=== PATIENT | male | born 1995 | race Caucasian/White ===

== ENCOUNTER 2022-01-01 20:39 | Emergency (ER) | payer SELFPAY ==
[2022-01-01 21:01] VITALS: BP 149/89; PULSE 88; RESP 16; TEMP 36.7; O2SAT 98; BMI 43.8
--- NOTE | 2022-01-01 21:09 | PC.NURSE ---
[facility] AT BEDSIDE.
--- NOTE | 2022-01-01 21:53 | HMH.EDGENADL ---
ED Disposition Clinical Impression: Conjunctivitis, Chemosis of conjunctiva Disposition: Home, Self-Care Condition on Discharge: Good Instructions: DI for Chemical Eye Burn Additional Instructions: At this time it was felt that you are safe to be discharged home. Please apply 2 drops of your antibiotic solution to the affected eye 4-5 times a day. If your symptoms are not subsiding by the morning please call [facility] at [phone] to schedule an evaluation. Referrals: Provider,Referral, [Primary Care Provider] - - Critical Care Critical Care Time: No Attestation: On 01/01/22, the high probability of a clinically significant, sudden or life threatening deterioration of the following system(s) required my full and direct attention, intervention and personal management. The time I documented below is in addition to time spent performing reported procedures but includes the following listed in this critical care notation. Medical Decision Making - Giovany Inquiry Pt receiving controlled substance: No Vital Signs: 01/01/22 21:01 01/01/22 23:01 Temperature 98.1 F 98.3 F Temperature Source Oral Oral Pulse Rate 88 Pulse Rate [Left Radial] 88 Respiratory Rate 16 16 Blood Pressure 144/68 H Blood Pressure [Right Arm] 149/89 H Blood Pressure Mean [Right Arm] 109 Blood Pressure Source [Right Arm] Automatic Cuff Blood Pressure Position Sitting Blood Pressure Position [Right Arm] Sitting 02 Sat by Pulse Oximetry 98 Oxygen Delivery Method Room Air Room Air Orders (Tests/Meds): ED MEDICATIONS Discontinued Medications Generic Name Dose Route Start Last Admin Trade Name Freq PRN Reason Stop Dose Admin Neomycin/Polymyxin/Gramicidin 0 ml 01/01/22 23:00 01/01/22 22:54 Ivhmxfju-Xvnyrn-Nkzk Ophth Soln 10ml Bottle OP 01/31/22 22:59 2 drp 5XDAY JENNIFER Administration Medical Decision Narrative: In summary this is a 26-year-old male who presents emergency department after getting rodenticide in his right eye. Patient is hemodynamically stable upon arrival. Visual acuity is 20/25 in the right and 20/20 in the left eye. Exam findings are described above. pH is within normal limits. Fluorescein stain shows diffuse punctate uptake concerning for chemical injury. The case was discussed with ophthalmology and given that there is normal pH patient is appropriate for discharge with antibiotic drops and if symptoms are progressive he was instructed to call the clinic in the morning. Patient will be discharged with polymyxin eyedrops. General Adult HPI - General Chief complaint: Eye Problems Stated complaint: Right eye Red swollen Time Seen by Provider: 01/01/22 21:20 Mode of Arrival: Ambulatory Limitations: No Limitations Description of Symptoms (Recalled from ER Triage Doc. by RN): PT REPORTS IRRITATION TO RIGHT EYE AFTER HE PUT OUT RAT POISON. PT REPORTS HE IS NOT SURE IF HE GOT ANYTHING IN IT OR NOT. PT REPORTS HE FLUSHED EYE AND TOOK SHOWER PRIOR TO ARRIVAL. - History of Present Illness HPI narrative: Patient is a 26-year-old male who presents emergency department after getting Decon rodent killer in his right eye. He noticed irritation and swelling and presents here for further evaluation. He sees some floaters however has no visual acuity complaints. Pain is moderate in intensity and itchy. He irrigated his own eye at home prior to arrival. - Related Data Home Medications Medication Instructions Recorded Confirmed No Known Home Medications 01/01/22 01/01/22 Allergies Allergy/AdvReac Type Severity Reaction Status Date / Time No Known Allergies Allergy Verified 01/01/22 22:53 [facility] History - Hepatitis A Screen Attestation statement:: This patient has been screened for Hepatitis A risk factors. ROS Obtained: Yes All systems reviewed & no additional complaints Physical Exam - General General appearance: alert, in no apparent distress - Head
--- NOTE | 2022-01-01 22:37 | PC.NURSE ---
MD EXAM WITH [facility]. OPTHAMOLOGY PAGED FOR CONSULT FOR .
--- NOTE | 2022-01-01 22:37 | PC.NURSE ---
PT UPDATED WITH EXPECTED WAIT TIMES.
--- NOTE | 2022-01-01 22:51 | PC.NURSE ---
PT UPDATED WITH EXPECTED WAIT TIMES. NO COMPLAINTS VOICED. NO ACUTE DISTRESS NOTED.
[2022-01-01 23:01] VITALS: BP 144/68; PULSE 88; RESP 16; TEMP 36.8; O2SAT 97
== END 2022-01-01 23:03 | disposition home or self-care (01) ==
PROVIDERS: Emergency Provider Emergency Medicine
DX: H11.421 Conjunctival edema, right eye (principal)
CPT/HCPCS: 99283

== ENCOUNTER 2022-06-19 18:13 | Emergency (ER) | payer BC, SELFPAY ==
[2022-06-19 18:40] VITALS: BP 176/80; PULSE 80; RESP 18; TEMP 36.7; O2SAT 98; BMI 45.0
[2022-06-19 18:52] VITALS: BP 155/87; PULSE 77; RESP 15; TEMP 36.7; O2SAT 99; BMI 31.5
--- NOTE | 2022-06-19 18:59 | EXP.UTC ---
Discharge Plan Disposition Patient Disposition: Home, Self-Care Condition: Good Prescriptions Prescriptions: New ibuprofen [IBU] 800 mg tablet 800 mg PO TIDP PRN (Reason: Moderate Pain) Qty: 20 0RF amoxicillin-pot clavulanate 875-125 mg Tablet 1 tab PO Q12H Qty: 20 0RF Referrals Follow up/Referrals: Provider,Referral, [Primary Care Provider] - See instructions Activity Restrictions/Add. Instructions Additional Instructions/Restrictions: Take medication as prescribed Follow up with Dentist as soon as possible Use Dental balls as advised in the [facility] today Straight to ER if any life threatening symptoms Clinical Impressions Clinical Impression: Abscess, dental Instructions Patient Instructions: DI for Tooth Abscess, Tooth Abscess, Amoxicillin and Clavulanic Acid Discharge ED Provider: Diane Rai [facility] HPI General Stated complaint: ABCESS IN MOUTH Mode of Arrival: Ambulatory Limitations: No Limitations Time Seen by Provider: 06/19/22 18:59 Description of Symptoms (Recalled from Triage Doc. by RN): pt comes in with c/o poss abcess in mouth. pt is waiting to be seen by dentist, pt just got medical insurance back. History of Present Illness Provider Complaint: Patient states that he has a couple teeth on right lower bottom that is broken off at the gumline States that he broke them about a year ago and has been waiting to get dental insurance to see the dentist States that last night he started having pain and swelling in his gum line and thinks they are getting infected so he came in to get something to help with the infection and pain Related Data Previous Rx's Medication Instructions Recorded amoxicillin 875 mg-potassium 1 tab PO Q12H #20 tabs 06/19/22 clavulanate 125 mg tablet ibuprofen 800 mg tablet (IBU) 800 mg PO TIDP PRN Moderate Pain 06/19/22 #20 tabs Allergies Allergy/AdvReac Type Severity Reaction Status Date / Time No Known Allergies Allergy Verified 01/01/22 22:53 Worker's Comp Is this a Worker's Comp case?: No [facility] Disclaimer: The information contained in this section may have been updated after the patient was seen, as this information can be updated by other users. Social History Smoking Status: Unknown if ever smoked alcohol intake: never current occupational status: employed Travel in the last 8 weeks: None ROS Obtained: Yes All systems reviewed & no additional complaints except as documented and Yes Systems reviewed as appropriate & no additional complaints except as documented Constitutional Constitutional: Reports system reviewed and no additional complaints, except as documented and Reports as per HPI ENT Ears, Nose, Mouth, and Throat: Reports system reviewed and no additional complaints, except as documented, Reports as per HPI and Reports dental pain Cardiovascular Cardiovascular: Reports system reviewed and no additional complaints, except as documented and Reports as per HPI Respiratory Respiratory: Reports system reviewed and no additional complaints, except as documented and Reports as per HPI Gastrointestinal Gastrointestingal: Reports system reviewed and no additional complaints, except as documented and as per HPI Physical Exam General General appearance: alert and in no apparent distress Expanded ENT Exam Teeth exam: Present dental caries, fractured tooth #, gingival swelling and other (multiple teeth on right lower bottom broken off at gum line with swelling and redness noted in gums) Respiratory Respiratory exam: Present normal lung sounds bilaterally; Absent respiratory distress or wheezes Cardiovascular Cardiovascular exam: Present regular rate, normal rhythm and normal heart sounds Neurological Exam Neurological exam: Present alert, oriented X3 and normal gait Medical Decision Making Giovany Inquiry Pt receiving controlled substance: No Giovany was queried for this patient: No Vital Signs: 06/19/22 18:52 06/19/22 18:4
[2022-06-19 19:06] VITALS: BP 176/80; PULSE 80; RESP 18; TEMP 36.7; O2SAT 98
== END 2022-06-19 19:40 | disposition home or self-care (01) ==
PROVIDERS: Emergency Provider Nurse Practitioner
DX: K04.7 Periapical abscess without sinus (principal)
CPT/HCPCS: 99212; G0463

== ENCOUNTER 2024-01-17 08:17 | Emergency (ER) | payer BC, SELFPAY ==
[2024-01-17] VITALS (9 sets, daily range): BP systolic 126–147; BP diastolic 67–98; PULSE 63–80; RESP 16–21; TEMP 36.6–37; O2SAT 95–98; BMI 46.4; BMI 46.2
--- NOTE | 2024-01-17 08:55 | EXP.UTC ---
Discharge Plan Disposition Patient Disposition: Still a Patient Condition: Fair Prescriptions Prescriptions: No Action No Known Home Medications Referrals Follow up/Referrals: Provider,Referral, [Primary Care Provider] - See instructions Clinical Impressions Clinical Impression: Chest pain Print Language Print Language: Bulgarian Discharge ED Provider: Angel Curry [facility] HPI General Stated complaint: fast heart rate, chest discomfort Mode of Arrival: Ambulatory Source of Information: Patient Limitations: No Limitations Time Seen by Provider: 01/17/24 08:55 Description of Symptoms (Recalled from Triage Doc. by RN): PATIENT STATES THAT ON 01/13 HE WAS WORKING OUTSIDE IN THE HEAT WHEN HE HAD AN EPISODE OF CHEST DISCOMFORT, FAST HEART BEAT, PAIN TO LEFT ARM AND NUMBNESS IN LEFT FINGERS. HE REPORTS HAVING THE SAME EPISODE YESTERDAY WHILE HAVING SEX WITH HIS . PATIENT CURRENTLY DENIES ANY CHEST PAIN/DISCOMFORT OR OTHER SYMPTOMS AT THIS TIME. HEENT Symptoms (Recalled from RN notes): No Resp Symptoms (Recalled from RN notes): No Skin Symptoms (Recalled from RN notes): No MS Symptoms (Recalled from RN notes): No Functional Status (Recalled from RN notes): WNL History of Present Illness Provider Complaint: He states that he had an episode of chest pain and high heart rate last night. He had a similar episode that occurred 2 days ago. He denies any chest pain or symptoms at this time. Related Data Home Medications ?Medication ?Instructions ?Recorded ?Confirmed No Known Home Medications 01/17/24 01/17/24 Allergies Allergy/AdvReac Type Severity Reaction Status Date / Time No Known Allergies Allergy Verified 01/01/22 22:53 Worker's Comp Is this a Worker's Comp case?: No [facility] Disclaimer: The information contained in this section may have been updated after the patient was seen, as this information can be updated by other users. Medical History (Updated 01/17/24 @ 09:05 by Angel Curry APRN) Hypertension Social History (Updated 06/19/22 @ 19:06 by Diane Rai APRN) Smoking Status: Unknown if ever smoked alcohol intake: never current occupational status: employed Travel in the last 8 weeks: None ROS Obtained: Yes All systems reviewed & no additional complaints except as documented Constitutional Constitutional: Denies chills and Denies fever(s) Eyes Eyes: Denies eye discharge ENT Ears, Nose, Mouth, and Throat: Denies dizziness, Denies otalgia and Denies sore throat Cardiovascular Cardiovascular: Reports as per HPI and Reports chest pain Respiratory Respiratory: Denies shortness of breath, Denies chest congestion, Denies cough, Denies stridor and Denies wheezing Gastrointestinal Gastrointestingal: Denies nausea or vomiting Musculoskeletal Musculoskeletal: Reports system reviewed and no additional complaints, except as documented and Denies arthralgias Integumentary/Breasts Skin/Breast: Denies rash Neurologic Neurologic: Denies dizziness and Denies paresthesias Allergic/Immunologic Allergic/Immunologic: Denies wheezing Physical Exam General General appearance: alert and in no apparent distress Head Head exam: atraumatic, normocephalic and normal inspection Eye Eye exam: Present normal appearance, PERRL and EOMI ENT ENT exam: Present normal exam, normal oropharynx, mucous membranes moist, TM's normal bilaterally and normal external ear exam Neck Neck exam: Present normal inspection, full ROM and trachea midline; Absent meningismus or lymphadenopathy Chest Chest inspection: Present normal inspection and symmetric chest wall rise; Absent tenderness Respiratory Respiratory exam: Present normal lung sounds bilaterally; Absent respiratory distress Cardiovascular Cardiovascular exam: Present regular rate and normal rhythm; Absent JVD Abdominal Exam Abdominal exam: Present soft and normal bowel sounds; Absent distention, tenderness or guarding Extremities Exam Extremities exam: Present normal inspection, full ROM and normal capillary refill; Absent calf tenderness Back Exam Back exam: Present normal inspection; Absent tenderness Neurological Exam Neurological exam: Present alert and oriented X3 Psychiatric Psychiatric exam: Present normal affect and normal mood Skin Skin exam: Present warm, dry, intact and normal color Lymphatic Lymphatic Findings: no adenopathy Medical Decision Making Medical Records Medical records reviewed: No I reviewed the patient's medical records. Giovany Inquiry Pt receiving controlled substance: No Vital Signs: 01/17/24 08:30 Temperature 98.6 F Temperature Source Oral Pulse Rate [Left Brachial] 80 Respiratory Rate 21 Blood Pressure [Left Arm] 138/98 H Blood Pressure Mean [Left Arm] 111 Blood Pressure Source [Left Arm] Automatic Cuff Blood Pressure Position [Left Arm] Sitting 02 Sat by Pulse Oximetry 98 Oxygen Delivery Method Room Air Medical Decision Narrative: he was transferred to the er due to his chest pain complaints.
--- NOTE | 2024-01-17 09:00 | PC.NURSE ---
PATIENT SENT TO ER PER Seun TRUONG APRN FOR FURTHER EVALUATION. REPORT GIVEN TO Sharon SIBLEY RN. PATIENT TRANSPORTED TO ER VIA WHEELCHAIR WITH [facility] STAFF ASSIST
--- NOTE | 2024-01-17 09:07 | ECG_ITS ---
APPROVED REPORT Exam: Resting ECG HR:72 bpm ECG Measurements Heart Rate 72 AXES IN 185 P 54 QRSd 109 QRS 34 QT 395 T 34 QTc 420 Conclusion SINUS RHYTHM NORMAL ECG Electronically signed by : JENISE DANG, 01/17/2024 23:29:26
--- NOTE | 2024-01-17 09:14 | XR_ITS ---
PROCEDURE INFORMATION: Exam: XR Chest Exam date and time: 01/17/2024 9:26 AM Age: 29 years old Clinical indication: Other: Chest pain TECHNIQUE: Imaging protocol: Radiologic exam of the chest. Views: 2 views. COMPARISON: No relevant prior studies available. FINDINGS: Lungs: Unremarkable. No consolidation. Pleural spaces: Unremarkable. No pleural effusion. No pneumothorax. Heart/Mediastinum: Unremarkable. No cardiomegaly. Bones/joints: Unremarkable. IMPRESSION: No acute findings.
[2024-01-17 09:17] LABS: MANUAL DIFFERENTIAL MANUAL DIFFERENTIAL (MANUAL DIFF)
[2024-01-17 09:21] LABS: Basophils # 0.1 K/mm3 (0-0.2); Basophils % 1.1 % (0.1-2.0); Eosinophils # 0.2 K/mm3 (0.0-0.4); Eosinophils % 3.2 % (0.1-12.0); Hematocrit 47.7 % (42.0-52.0); Hemoglobin 15.7 g/dL (14.1-18.0); Lymphocytes # 2.2 K/mm3 (0.7-4.5); Lymphocytes % 28.6 % (10-50); Mean Corpuscular Volume 84.9 fl (80-94); Mean Platelet Volume 7.5 fl (7.4-10.4); Monocytes # 0.3 K/mm3 (0.1-1.0); Monocytes % 4.5 % (1.7-9.3); Neutrophils # 4.7 K/mm3 (1.8-7.8); Neutrophils % 62.7 % (37.0-80.0); Platelet Count 265 K/mm3 (142-424); Red Blood Count 5.62 M/mm3 (4.60-6.20); Red Cell Distribution Width 13.8 % (11.5-17.5); White Blood Count 7.5 K/mm3 (4.8-10.8)
[2024-01-17 09:22] LABS: Albumin Level 4.5 g/dl (3.5-5.0); Chloride 107 mmol/L (98-107)
[2024-01-17 09:23] LABS: Potassium 3.9 mmoL/L (3.5-5.1); Sodium 141 mmol/L (136-145)
[2024-01-17 09:25] LABS: Blood Urea Nitrogen 15 mg/dl (9-20); Creatinine Clearance Estimated 143 mL/min (50-200); Estimated Glomerular Filt Rate 88 ml/min (>60); GFR (African American) 106 ML/MIN (>60)
--- NOTE | 2024-01-17 09:25 | PC.NURSE ---
DR VARELA AT BEDSIDE
[2024-01-17 09:26] LABS: Alanine Aminotransferase 50 U/L (12-78); Albumin/Globulin Ratio 1.3 (1.1-1.8); Alkaline Phosphatase 87 U/L (38-126); Anion Gap 9.9 mEq/L (5-15); Aspartate Amino Transferase 38 U/L (17-59); Bilirubin,Total 0.7 mg/dl (0.2-1.3); Calcium 8.7 mg/dl (8.4-10.2); Carbon Dioxide 28 mmol/L (22.0-30.0); Globulin 3.5 g/dL (1.3-3.2); Glucose 95 mg/dl (74-100)
[2024-01-17 09:39] LABS: Troponin I < 0.01 ng/ml (0.00-0.034)
[2024-01-17 10:40] LABS: Eosinophils % 3 % (0-3); Lymphocytes % 32 % (10-50); Monocytes % 2 % (2-9); Neutrophils % 60 % (42-76); Total Cells Counted 100
[2024-01-17 10:41] LABS: Platelet Estimate Normal; RBC Morphology Normal
[2024-01-17 11:50] LABS: Troponin I < 0.01 ng/ml (0.00-0.034)
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
== END 2024-01-17 12:19 | disposition home or self-care (01) ==
LOC: UTC 08:46 → ER 09:01
PROVIDERS: Emergency Provider Emergency Medicine
DX: R07.9 Chest pain, unspecified (principal); E66.01 Morbid (severe) obesity due to excess calories; Z68.42 Body mass index [BMI] 45.0-49.9, adult
CPT/HCPCS: 71046; 80053; 84484; 85007; 85014; 85018; 85048; 85049; 93005; 99284

== ENCOUNTER 2024-02-23 07:43 | Outpatient (CLI) | payer BC, SELFPAY ==
--- NOTE | 2024-02-23 07:45 | CA_ITS ---
APPROVED REPORT EXAM: Comprehensive 2D, Doppler, and color-flow Echocardiogram Sales Management Trainee: Sri Quiros RT(R) Ht: 6 ft 7 in Wt: 422lbs BSA: 3.13 BP: 128/82 mmHg Indications: CP, palpitations, fatigue, HTN, SOB, abn EKG, TDE due body habitus Echo Enhancing Agent Indication: Endocardial border delineation Agent(s) / Amount(s) Used: Definity 2 cc M-Mode Dimensions RVDd 2.81 cm (0.9-2.6) LA Diam 3.99 cm (1.9-4.0) LVDd 5.22 cm (3.5-5.7) LVDs 4.15 cm (3.5-5.7) IVSd 1.07 cm (0.6-1.1) PWd 1.07 cm (0.6-1.1) EF (Teich) 41.50% FS 20.50% EDV (Teich) 130.70 mL ESV (Teich) 76.40 mL LV Diastology E Decel Time 170 (160-240 msec) E/A Ratio 1.9 Mitral Valve MV E Max Vic. 97.0 (40-130 cm/s) MV A Velocity 51.0 (40-130 cm/s) E/A Ratio 1.91 MV PHT 50.0 ms Left Ventricle The left ventricle is normal size. The left ventricular systolic function is normal. The left ventricular ejection fraction is within the normal range. There is normal left ventricular wall thickness. There is normal LV segmental wall motion. The left ventricular diastolic function is normal. No left ventricle thrombus noted on this study. LVEF is 55%. Right Ventricle The right ventricle is normal size. The right ventricular systolic function is normal. Atria The left atrium size is normal. The right atrium size is normal. There is no Doppler evidence of interatrial shunt. Aortic Valve The aortic valve opens well. There is no aortic valvular stenosis. No aortic regurgitation is present. Mitral Valve The mitral valve is normal in structure. No evidence of mitral valve stenosis. There is no mitral valve regurgitation noted. Tricuspid Valve The tricuspid valve leaflets are thin and pliable. Trace tricuspid regurgitation. There is insufficient TR jet to estimate RVSP. Pulmonic Valve The pulmonary valve is normal in structure. Trace pulmonic regurgitation. Great Vessels The aortic root is normal in size. The ascending aorta is normal in size. The IVC is not well-visualized. Pericardium There is no pericardial effusion. Other Information Study Quality: Fair Conclusion Normal biventricular systolic function. No significant valvular stenosis or regurgitation. Ultrasound enhancing agent demonstrates no evidence of LV thrombus. Electronically signed by : Rachana Cam MD 02/26/2024 02:09:24
--- NOTE | 2024-02-23 07:45 | CT_ITS ---
APPROVED REPORT Pediatric Oncology Nurse: CLINICAL INDICATION Chest Pain TECHNIQUE Image Acquisition: A 128 slice MDCT scanner ([employer] View) was used for data acquisition. A noncontrast coronary calcium scan was performed. A CT attenuation threshold of 130 Hounsfield units (HU) was used for the detection of calcium in contiguous voxels of 1 sq mm in area to be counted as individual lesions. Bolus tracking in the ascending aorta with a threshold of 180 HU was performed. Immediately afterwards, ECG synchronized cardiac CT was then performed from the cardiac base to apex using retrospective gating with ECG tube current modulation. A total of 85 mL of Isovue 370 mg/mL contrast medium was administered at 5 mL/sec followed by a saline flush using a biphasic injection protocol. A tube voltage of 120 KVp was used. The patient received no medications prior to the cardiac CT. The average heart rate at the time of acquisition was 60 bpm and regular. Image Reconstruction Transaxial images were reconstructed at 0.67 mm slide thickness. Data was reviewed interactively on an advanced workstation capable of 2 and 3-dimensional displays in all conventional reconstruction formats, including multiplanar reformations, maximum intensity projections, curved multiplanar reformations, and volume rendered reconstructions. When applicable, selected routine images describing the relevant coronary anatomy and pathology were saved and sent to PACS. Complications None Technical Quality Overall image quality was fair. Coronary artery opacification was adequate. Total DLP (Dose-Length Product) is 1465.8 mGy-cm. The reported value represents the total of one or more individual components during the CT acquisition of this date and at this time, and as such, the same value may appear in more than one CT report depending on the interpreting/reporting physicians. COMPARISON None FINDINGS CT Coronary Calcium Scoring LMA (Left Main Artery) = 0 LAD (Left Anterior Descending) = 0 LCX (Left Coronary Circumflex) = 0 RCA (Right Coronary Artery) = 0 Total Calcium Score = 0 using the AJ-130 method. The interpretation of the calcium heart score is based on the following continuum*: 0 = no calcified plaque detected (risk of coronary artery disease is very low ??? less than 5%) 1-10 = calcium detected in extremely minimal levels (risk of coronary diseases is still low ??? less than 10%) 11-100 = mild levels of plaque detected with certainty (mild or minimal narrowing of heart arteries is likely) 101-400 = definite,at least moderate levels of plaque detected (relatively high risk of a heart attack within 3-5 years) >401-999 = extensive levels of plaque detected (high risk of heart attack, high levels of vascular disease are present, high likelihood of at least one significant coronary narrowing) *The calcium heart score quantifies the burden of coronary calcification/plaque in the coronary arteries. The calcium heart score is not able to evaluate the presence or burden of non-calcified (i.e. soft) plaque. There is no identifiable calcification in the aortic valve, mitral annulus or mitral valve, pericardium, or myocardium. Coronary CT Angiography The coronary arterial system is right dominant. Quantitative Stenosis Grading: Left Main (LM): The left main originates normally from the left sinus of Valsalva. The LM trifurcates into the left anterior descending artery, ramus intermedius, and left circumflex artery. The LM is patent with no evidence of atherosclerosis. Left Anterior Descending (LAD) and Diagonal Branches: The LAD gives off 3 diagonal branch(es). The LAD and its branches are patent with no evidence of atherosclerosis. There is a shallow mid-LADmyocardial bridge present, measuring 1 mm in depth and 9 mm in length. Ramus-intermedius (RI): The RI is patent. Left Circumflex (LCX) and Obtuse Marginals (OM): The LCX gives off 1 Obtuse Marginal (OM) branch(es). The LCX and its branches are patent with no evidence of atherosclerosis. Right Coronary Artery (RCA): The RCA originates normally from the right sinus of Valsalva. The RCA gives off a posterior descending artery (PDA) and posterolateral (PL) branches. The RCA and its branches are patent with no evidence of atherosclerosis. Non-Coronary Cardiac Findings: Analysis of the left ventricular (LV) structure and function was performed after 3-D reconstruction of the LV from axial images, with user-corrected automatic contouring for assessment of LV volumes and user-defined reconstruction from oblique planes for measurement of 3-D cardiac structure and function. -The left ventricle systolic function is normal. -There is no left atrial appendage filling defect. Two right pulmonary veins and two left pulmonary veins drain normally into the left atrium. -No pericardial thickening or calcification. -Central and branch pulmonary arteries in the [id number] are unremarkable. -Thoracic aorta within the visualized thoracic aortic-branches in the [id number] is unremarkable. Extracardiac Structures No significant extra-cardiac findings. Note, however, that this study is focused on the cardiac findings. IMPRESSION -No coronary calcification with an Agatston score = 0 using the AJ-130 method. -No evidence of significant flow-limiting atherosclerosis of the coronary arteries. -Shallow mid-LADmyocardial bridge present, measuring 1 mm in depth and 9 mm in length. -CAD-RADS 0. Management recommendations per ACC/AHA guidelines*, as clinically appropriate. *Recommendations: CAD RADS 0: Reassurance. Consider non-atherosclerotic causes of chest pain. CAD RADS 1: Consider non-atherosclerotic causes of chest pain. Consider preventive therapy and risk factor modification. CAD RADS 2: Consider non-atherosclerotic causes of chest pain. Consider preventive therapy and risk factor modification, particularly for patients with nonobstructive plaque in multiple segments. CAD RADS 3: Consider further functional testing. Consider symptom-guided anti-ischemic and preventive pharmacotherapy as well as risk factor modification per published guideline statements. CAD RADS 4A: Consider further functional testing or invasive coronary angiography with revascularization per published guideline statements. Consider symptom-guided anti-ischemic and preventive pharmacotherapy as well as risk factor modification per published guideline statements. CAD RADS 4B: Invasive coronary angiography recommended with revascularization per published guideline statements. Consider symptom-guided anti-ischemic and preventive pharmacotherapy as well as risk factor modification per published guideline statements. CAD RADS 5: Consider invasive angiography and/or viability assessment with revascularization per published guideline statements. Consider symptom-guided anti-ischemic and preventive pharmacotherapy as well as risk factor modification per published guideline statements. CRITICAL RESULT None COMMUNICATION Per this written report The coronary and cardiac findings of this CCTA were reviewed, reported, and signed by Que Cam MD (Construction Rep) Conclusion Electronically signed by : Rachana Cam MD 02/24/2024 13:26:55
[2024-02-23 07:54] VITALS: BMI 46.4
[2024-02-23 07:55] VITALS: BP 151/86; PULSE 67; RESP 18; TEMP 36.8; O2SAT 99
[2024-02-23 08:26] LABS: Anion Gap 7.6 mEq/L (5-15); Blood Urea Nitrogen 11 mg/dl (9-20); Calcium 8.6 mg/dl (8.4-10.2); Carbon Dioxide 31 mmol/L (22.0-30.0); Chloride 106 mmol/L (98-107); Creatinine Clearance Estimated 143 mL/min (50-200); Estimated Glomerular Filt Rate 88 ml/min (>60); GFR (African American) 106 ML/MIN (>60); Glucose 99 mg/dl (74-100); Potassium 3.6 mmoL/L (3.5-5.1); Sodium 141 mmol/L (136-145)
--- NOTE | 2024-02-23 08:26 | PC.NURSE ---
Addendum entered by Ciarra Velez RN 02/23/24 08:30: 0830 - Spoke w/ P[facility]O Marie - received new orders for 125 mg solumedol IV x1 prior to CTA and 125 mg solumedrol IV x1 post CTA. RB+V. Order faxed to pharmacy. Original Note: 0805 - Pt has an allergy to shellfish, unsure if he has an allergy to IV contrast. Cards contacted r/t this for orders for pre-med of pt in case of reaction. Dr. Cam is not in the office until noon. Batshvea Venegas MA states she will speak w/ PITO Marie and call this nurse back for orders. 0814 - Received call back w/ orders from P[facility] Marie forthe followin mg Benadryl IV x1 prior to CTA 50 mg Prednisone IV x1 prior to CTA 50 mg Prednisone IV x1 post CTA RB+V. Orders faxed to pharmacy 0821 - Carine from pharmacy called and states that we do not have IV prednisone in house. 0822 - Attempted to contact cardiology for alternative orders. No answer, left message to call back. [ End ]
[2024-02-23] MEDS: diphenhydrAMINE 50MG/ML VIAL 50 MG IV (08:44)
[2024-02-23] MEDS: METHYLPREDNISOLONE SOD SUCC 125MG VIAL 125 MG IV ×2 (08:44→09:09)
[2024-02-23 08:53] VITALS: BP 102/69; PULSE 71; RESP 18; O2SAT 99
[2024-02-23 08:59] VITALS: BP 138/76; PULSE 65; RESP 18; O2SAT 100
[2024-02-23 09:03] VITALS: BP 133/78; PULSE 62; O2SAT 100
[2024-02-23 09:09] VITALS: BP 166/81; PULSE 64; RESP 17; O2SAT 99
[2024-02-23] MEDS: SODIUM CHLORIDE 0.9% 10ML SYR (RAD ONLY) 10 ML IV (09:10)
[2024-02-23] MEDS: IOPAMIDOL-370 (76%);100ML BOTTLE 85 ML IV (09:10)
[2024-02-23] MEDS: 0.9 % SODIUM CHLORIDE 50 ML VIAL IV (09:10)
[2024-02-23 09:22] VITALS: BP 161/93; PULSE 65; RESP 18; TEMP 36.7; O2SAT 99
[2024-02-23] MEDS: DEFINITY US ECHO CONTRAST 2ML INJ 2 MG IV (12:04)
== END 2024-02-23 23:59 | disposition home or self-care (01) ==
PROVIDERS: PCP Internal Medicine; Visit Provider Internal Medicine
DX: R07.9 Chest pain, unspecified (principal); R00.2 Palpitations; R94.31 Abnormal electrocardiogram [ECG] [EKG]; R06.00 Dyspnea, unspecified; Z82.49 Family history of ischemic heart disease and other diseases of the circulatory system
CPT/HCPCS: 75574; 80048; 93306; J1200; J2919; Q9957; Q9967